=== PATIENT | female | born 1945 | race Caucasian/White ===

== ENCOUNTER 2018-03-01 09:21 | Emergency (ER) | payer MEDICARE, SELFPAY ==
[2018-03-01 09:23] VITALS: BP 150/90; PULSE 100; RESP 22; TEMP 36.6; O2SAT 100; BMI 23.6
--- NOTE | 2018-03-01 09:44 | EKG12_ITS ---
Test Reason : SOB Blood Pressure : / mmHG Vent. Rate : 090 BPM Atrial Rate : 090 BPM P-R Int : 130 ms QRS Dur : 082 ms QT Int : 384 ms P-R-T Axes : 064 -08 065 degrees QTc Int : 469 ms Normal sinus rhythm Normal ECG Confirmed by ANIL ZARATE, YOLANDA ([id number]), fashion editor SATHISH CAPONE ([id number]) on 03/03/2018 2:10:10 PM Referred By: KATHERINE Confirmed By:YOLANDA MA MD
--- NOTE | 2018-03-01 09:44 | RAD_ITS ---
STUDY: X-RAY CHEST REASON FOR EXAM: Female, 72 years old. Shortness of breath, dizziness, nausea and vomiting. Seen 3 times recently at urgent care. TECHNIQUE: PA and lateral chest COMPARISON: None. FINDINGS: The lungs are clear and expanded. Normal cardiomediastinal silhouette, arlen and pleural margins. No acute osseous or upper abdominal process. There is slight thoracolumbar scoliosis and there is mild osteopenia. RAD/Chest PA and Lateral IMPRESSION: No acute cardiopulmonary process. Electronically Signed: Bharat Mon, at 11:44 EDT Tel , Service support ,
--- NOTE | 2018-03-01 09:46 | CT_ITS ---
STUDY: CT BRAIN WITHOUT CONTRAST REASON FOR EXAM: Female, 72 years old. Shortness of breath, dizziness, nausea and vomiting, falls. RADIATION DOSAGE (If Supplied By Facility): CTDIvol = ( 44.99 ) mGy, DLP = ( 779.24 ) mGycm TECHNIQUE: Transaxial CT imaging of the brain was performed without administration of intravenous contrast material. Coronal and sagittal 2-D MPR Individualized dose optimization techniques were used for this CT. COMPARISON: None. FINDINGS: Bilateral maxillary sinuses mucous retention cysts, and mucoperiosteal thickening. Minimal mucoperiosteal thickening of a a few anterior left ethmoid sinuses. The remaining paranasal sinuses are clear. 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 The mastoid air cells and middle ear cavities are clear. Symmetric and grossly normal features of the vestibular and acoustic apparatus of the temporal bones. Craniofacial osseous structures normal. Extracranial soft tissues including orbital contents normal. The brain parenchyma is normal in attenuation characteristics, no significant chronic white matter changes, no acute bleed or infarct. There is mild symmetric expansion of lateral ventricles and extra-axial spaces consistent with minimal age-related atrophy. Pituitary, brainstem and cerebellum are normal. CT/Brain/Head without Contrast IMPRESSION: No acute intracranial process. Paranasal sinus disease. Electronically Signed: Bharat Mon, at 10:35 EDT Tel , Service support ,
--- NOTE | 2018-03-01 09:51 | ED.DCSUM_ITS ---
- ER Visit Summary Date of Service: 03/01/18 Chief Complaint: Shortness of breath, dizzy History of Present Illness: The patient is a 72 F with shortness of breath, congestion, and cough for the past 3 weeks. had been ill with similar symptoms. She was seen in urgent care 3 times in the past week and a half. Most recently she was given doxycycline and prednisone on February 21. Patient reports no improvement with this. She also reports some dizziness and off- balance sensation over the past week. She states she does have cough with clear or yellow colored sputum. She is occasional chest pain. She has not noted fever. She did take a recent trip to [facility]. She has no personal history of blood clots or cardiac problems. Physical Examination: Blood pressure is 150/90, temperature 97.9, heart rate 100 , respiratory rate 22, pulse ox 100% on room air. Patient sitting upright in bed. She is speaking full sentences and is in no distress. Head neck examination is unremarkable. Heart is regular rate and rhythm. Lung sounds are clear with good air movement. Abdomen is soft and nontender. Lower extremity examination was no calf tenderness or edema. Test Results: EKG is sinus at 90 with no sign of acute ischemia. CBC is normal. Chemistry studies unremarkable. Troponin is normal. D-dimer 0.53 which is normal for age adjustment. Two-view chest x-ray is clear. CT head shows no acute intracranial process. Paranasal sinus disease is noted. Emergency Department Course and Treatment: Patient was given a DuoNeb treatment here along with IV fluids. She was seen and ambulated to the restroom and back without difficulty. She states overall she does feel better. Test results were discussed with her. She will continue the remainder of her antibiotic course. She is to follow with her primary care physician. Treatment Plan: [] Disposition: Discharge Impression: Partially treated URI This note was generated with [employer] dictation software. It may contain incorrect words, spelling, and punctuation that were not noted in review of the chart prior to signing ED Disposition - Plan for ED Patient: Chief Complaint: Shortness of Breath Referrals: Marilee Cosby MD [Primary Care Provider] -
[2018-03-01] MEDS: Ipratropium/Albuterol Sulfate 3 ML AMPUL.NEB INHALATION (10:00)
[2018-03-01 10:02] VITALS: PULSE 107; RESP 16
[2018-03-01 10:11] LABS: Absolute Lymphocyte Count 2.79 X10^3/ul (0.83-4.51); Absolute Neutrophil Count 5.9 X10^3/uL (2.0-7.7); Basophil# 0.07 X10^3/uL; Basophil% 0.7 % (0-1); Eosinophil# 0.24 X10^3/uL; Eosinophils% 2.5 % (0-5); Hematocrit 41.6 % (37-47); Lymphocyte # 2.79 X10^3/ul (4.0); Lymphocyte % 29.2 % (19-41); Mean Corp Hgb Conc 31.3 g/gl (32-36); Mean Corpuscular Hgb 23.5 pg (27.0-32.0); Mean Corpuscular Volume 75.2 fL (81-99); Mean Platelet Vol. 10.6 fl (6.2-12.0); Monocyte% 5.2 % (0-10); Neutrophil # 5.93 X10^3/uL (2.7-7.7); Platelet Count 337 K/mm3 (150-450); RBC Distribution Width CV 14.5 % (11.6-14.6); RBC Distribution Width SD 39.6 fl (35.1-43.9); Red Blood Count 5.53 M/mm3 (4.2-5.4); White Blood Count 9.6 K/mm3 (4.4-11.0)
[2018-03-01 10:13] LABS: POSITIVE COUNT NO; POSITIVE DIFFERENTIAL NO; POSITIVE MORPHOLOGY NO
[2018-03-01] MEDS: 0.9% Normal Saline 1,000 ML 150 ML IV (10:14)
[2018-03-01 10:29] LABS: D-Dimer Quantitative (DVT/PE) 0.53 FEU/ug/m (0.27-0.49)
[2018-03-01 10:30] LABS: Anion Gap 10 (5-15); BUN 15 mg/dL (7-18); Calcium,Total 9.4 mg/dL (8.5-10.1); Chloride 106 mmol/L (98-107); EST Glomerular Filtration Rate 58 mL/min (>60); Est Glom Filt Rate - Afr Amer 70 mL/min (>60); Estimated Creatinine Clearance 44.56 ml/min; Glucose 122 mg/dL (74-106); Potassium 3.9 mmol/L (3.5-5.1); Sodium Level 142 mmol/L (136-145)
--- NOTE | 2018-03-01 10:31 | ED.RN ---
lab resulted ddimer 0.53
--- NOTE | 2018-03-01 12:15 | ED.DEP ---
ED Disposition - Plan for ED Patient: Disposition: Home or Assisted Living Chief Complaint: Shortness of Breath Instructions: Acute Bronchitis Referrals: Marilee Cosby MD [Primary Care Provider] - 1 Week
[2018-03-01 12:16] VITALS: BP 126/64; PULSE 91; PULSE 94; RESP 12; RESP 13; O2SAT 93; O2SAT 94
--- NOTE | 2018-03-03 13:16 | CM.ED ---
ED CALLBACK: Follow-up call placed to patient. Voicemail left with return contact information.
== END 2018-03-01 12:23 | disposition home or self-care (01) ==
PROVIDERS: Emergency Provider Emergency Medicine; Family Provider Internal Medicine; PCP Internal Medicine
DX: J06.9 Acute upper respiratory infection, unspecified (principal); E11.9 Type 2 diabetes mellitus without complications; E78.00 Pure hypercholesterolemia, unspecified; Z87.891 Personal history of nicotine dependence
CPT/HCPCS: 70450; 71046; 80048; 84484; 85025; 85379; 93005; 94640; 99284; J7030; A4216

== ENCOUNTER → 2018-03-23 07:58 | Outpatient (CLI) | payer MEDICARE, SELFPAY ==
--- NOTE | 2018-03-23 08:00 | US_ITS ---
STUDY: THYROID ULTRASOUND REASON FOR EXAM: Female, 72 years old. Difficult swelling x1 year. Voice change x 6 weeks. TECHNIQUE: Ultrasound evaluation of the thyroid was performed with real-time and static nobles-scale imaging. COMPARISON: None. FINDINGS: RIGHT LOBE: The right lobe of the thyroid gland measures 3.4 x 1.1 x 1.1 cm. There is a homogeneous echotexture. There are no demonstrated solid, cystic or complex lesions. LEFT LOBE: The left lobe of the thyroid gland measures 2.9 x 1.1 x 0.9 cm. There is a homogeneous echotexture. There are no demonstrated solid, cystic or complex lesions. ISTHMUS: The isthmus measures 0.2 cm AP. US/Thyroid IMPRESSION: Normal ultrasound examination of the thyroid. Electronically Signed: Toni Beckman, at 14:17 EDT Tel , Service support ,
== END ==
PROVIDERS: Family Provider Internal Medicine; PCP Internal Medicine; Visit Provider Nurse Practitioner
DX: R13.10 Dysphagia, unspecified (principal)
CPT/HCPCS: 76536

== ENCOUNTER 2019-08-11 11:57 | Emergency (ER) | payer MEDICARE, SELFPAY ==
[2019-08-11 11:58] VITALS: BP 164/89; PULSE 105; RESP 16; TEMP 36.2; BMI 25.1
--- NOTE | 2019-08-11 12:13 | EKG12_ITS ---
Test Reason : SOB Blood Pressure : / mmHG Vent. Rate : 088 BPM Atrial Rate : 088 BPM P-R Int : 148 ms QRS Dur : 076 ms QT Int : 374 ms P-R-T Axes : 056 -14 043 degrees QTc Int : 452 ms Normal sinus rhythm Voltage criteria for left ventricular hypertrophy Nonspecific ST abnormality Abnormal ECG Confirmed by JUAN M ZARATE, DANIELA ([id number]), medical editor SATHISH CAPONE ([id number]) on 08/12/2019 10:15:04 AM Referred By: LOTTIE Confirmed By:KATIE MCGOWAN MD
--- NOTE | 2019-08-11 12:15 | RAD_ITS ---
STUDY: X-RAY CHEST REASON FOR EXAM: Female, 73 years old. INCREASED SOB TECHNIQUE: Single AP portable view of the chest. COMPARISON: None. FINDINGS: The lungs are clear and expanded. There is no demonstrated pleural abnormality. Normal size heart. Normal mediastinum and arlen. Normal visualized pulmonary arteries. Normal visualized aortic arch and descending thoracic aorta. There is a levoscoliosis of the thoracic spine. There is degenerative osteoarthritis of the bilateral shoulders. There is no demonstrated abnormality of the visualized soft tissue structures of the upper abdomen. RAD/Chest 1 View (Portable) IMPRESSION: Degenerative changes, as described above. No demonstrated acute cardiopulmonary process. Electronically Signed: Elmer Gil, at 13:10 EST Tel , Service support ,
--- NOTE | 2019-08-11 12:22 | ED.VISSUMM ---
- ER Visit Summary Date of Service: 08/11/19 Chief Complaint: Shortness of breath History of Present Illness: The patient is a 73 F history of diabetes and sleep apnea. Patient states she has been intermittently short of breath for months. Thinks is gotten worse recently. She denies any hemoptysis. No history of DVT or PE. No leg pain or swelling. No pleuritic pain. She did travel to [place] for the last several weeks and was having symptoms before that. No known cardiac disease. Not exertional. She states is lying in bed she feels short of breath. Physical Examination: Older female no acute distress vital signs are stable and afebrile. She does not look septic or toxic. H EENT exam unremarkable. Neck nontender no JVD. Lungs clear to auscultation bilaterally. Heart regular rhythm no murmur rate about 100. Abdomen soft nontender normal bowel sounds no peritoneal signs. Patient moving all 4 extremities. Calves are nontender without edema or cords. Equal symmetrical radial pulses. Normal material loader strength. Neurologically she is awake and alert with no focal motor deficits. Test Results: CBC normal white count of 7. Hemoglobin 12. Chemistries normal normal creatinine gap. Troponin normal. Chest x-ray normal cardiac silhouette mediastinum read both by myself and radiologist. Portable 1 view. EKG sinus rhythm rate 88 with no signs of MA or ischemia. No [id number]. Emergency Department Course and Treatment: Older female with a pretty benign exam. Complaining of feeling short of breath. Treatment Plan: Repeat exam patient is doing well at 1413 p.m. Exam normal. Pulse ox 95 to 97% on room air. No hypoxia. Repeat exam no change. We discussed all the test results and outpatient follow-up. Disposition: Discharge Impression: Acute dyspnea of uncertain etiology This note was generated with [employer] dictation software. It may contain incorrect words, spelling, and punctuation that were not noted in review of the chart prior to signing ED Disposition - Plan for ED Patient: Referrals: Marilee Cosby MD [Primary Care Provider] -
[2019-08-11 12:41] LABS: Absolute Lymphocyte Count 2.07 X10^3/uL (0.83-4.51); Absolute Neutrophil Count 4.9 X10^3/uL (2.0-7.7); Basophil# 0.08 X10^3/uL; Eosinophil# 0.16 X10^3/uL; Hematocrit 41.4 % (37-47); Hemoglobin 12.6 g/dL (12.0-15.0); Lymphocyte # 2.07 X10^3/ul (4.0); Lymphocyte % 26.3 % (19-41); Mean Corp Hgb Conc 30.4 g/dL (32-36); Mean Corpuscular Hgb 23.7 pg (27.0-32.0); Mean Platelet Vol. 10.6 fl (6.2-12.0); Monocyte# 0.57 X10^3/uL; Monocyte% 7.2 % (0-10); NRBC Flagged by Analyzer 0 % (0-5); Neutrophil # 4.93 X10^3/uL (2.7-7.7); Neutrophil % 62.6 % (47-70); Platelet Count 322 K/mm3 (150-450); RBC Distribution Width CV 14.6 % (11.6-14.6); RBC Distribution Width SD 40.8 fl (35.1-43.9); Red Blood Count 5.31 M/mm3 (4.2-5.4); White Blood Count 7.9 K/mm3 (4.4-11.0)
[2019-08-11 12:56] LABS: Anion Gap 4 (5-15); BUN 15 mg/dL (7-18); BUN/Creat Ratio 15.8 RATIO (10-20); Calcium,Total 9.4 mg/dL (8.5-10.1); Chloride 110 mmol/L (98-107); Creatinine, Serum 0.95 mg/dL (0.55-1.02); EST Glomerular Filtration Rate 61 mL/min (>60); Est Glom Filt Rate - Afr Amer 74 mL/min (>60); Estimated Creatinine Clearance 48.17 ml/min; Glucose 140 mg/dL (74-106); Potassium 3.9 mmol/L (3.5-5.1); Sodium Level 142 mmol/L (136-145)
[2019-08-11 13:05] VITALS: O2SAT 97
--- NOTE | 2019-08-11 14:17 | ED.DEP ---
ED Disposition - Plan for ED Patient: Disposition: Home or Assisted Living Instructions: Hospice: [facility] Dyspnea, ED Dyspnea Referrals: Marilee Cosby MD [Primary Care Provider] - 3-5 Days Additional Instructions: Follow-up with your doctor. At this time all your tests are normal. Your chest x-ray and EKG were normal. However if you are continuing in symptoms with ED further evaluation. Return to ER if you are feeling worse.
[2019-08-11 14:37] VITALS: PULSE 80; RESP 16; O2SAT 97
== END 2019-08-11 14:38 | disposition home or self-care (01) ==
PROVIDERS: Emergency Provider Emergency Medicine; Family Provider Internal Medicine; PCP Internal Medicine
DX: R06.00 Dyspnea, unspecified (principal); E11.9 Type 2 diabetes mellitus without complications; G47.30 Sleep apnea, unspecified; Z79.84 Long term (current) use of oral hypoglycemic drugs
CPT/HCPCS: 71045; 80048; 84484; 85025; 93005; 99284; A4216

== ENCOUNTER 2020-10-15 07:16 | Outpatient (RCR) | payer MEDICARE, SELFPAY | END 2020-10-15 23:59 | LOC: IMMUN 07:16 | PROVIDERS: PCP Internal Medicine; Visit Provider Family Medicine | DX: Z23 Encounter for immunization (principal) | CPT/HCPCS: 0011A; 0012A ==